=== PATIENT | female | born 1965 | race Caucasian/White ===

== ENCOUNTER 2019-08-01 01:49 | Inpatient (IN) ==
[2019-08-01 04:08] LABS: Bilirubin,Urine Negative (Negative); Blood,Urine Negative (Negative); Clarity,Urine Clear (Clear); Color,Urine Yellow (Yellow); Glucose,Urine (UA) Normal (Normal); Ketones,Urine Negative (Negative); Leukocyte Esterase,Urine Negative (Negative); Nitrite,Urine Negative (Negative); PH,Urine 6.5 pH Units (5.0-8.0); Protein,Urine Negative (Neg-Trace); Specific Gravity,Urine 1.006 (1.010-1.025); Urobilinogen,Urine Normal (Normal)
[2019-08-01 04:18] LABS: Basophils % 0.4 %; Eosinophils # 0.1 K/mcL (0.0-0.6); Eosinophils % 0.5 %; Hematocrit 41.4 % (35.3-44.9); Immature Granulocytes % 0.3 % (0-4); Lymphocytes # 1.9 K/mcL (0.6-4.6); Lymphocytes % 20.4 %; Mean Corpuscular HGB Conc 36.2 g/dL (31.6-35.5); Mean Corpuscular Hemoglobin 33.5 pg (28.0-33.3); Mean Corpuscular Volume 92.4 fL (83.0-100.0); Mean Platelet Volume 10.5 fL (9.4-12.4); Monocytes # 0.4 K/mcL (0.0-1.3); Monocytes % 4.4 %; Platelet Count 191 K/mcL (140-400); Red Blood Count 4.48 M/mcL (3.82-4.97); Red Cell Distribution Width 13.3 % (11.5-14.5); White Blood Count 9.5 K/mcL (4.3-11.1)
[2019-08-01 04:20] LABS: Amphetamine Screen,Urine Negative ng/mL (Cutoff=1000); Barbiturate Screen,Urine Negative ng/mL (Cutoff=200); Benzodiazepines Screen,Urine Negative ng/mL (Cutoff=200); Cannabinoid Screen,Urine Negative ng/mL (Cutoff = 50); Cocaine Screen,Urine Negative ng/mL (Cutoff= 300); Opiate Screen,Urine Negative ng/mL (Cutoff=300); Phencyclidine Screen,Urine Negative ng/mL (Cutoff=25)
[2019-08-01 04:33] LABS: Acetaminophen < 10 mcg/mL (10-20); BUN/Creatinine Ratio 11 (6-26); Blood Urea Nitrogen 5 mg/dL (6-20); Calcium 9.5 mg/dL (8.6-10.3); Carbon Dioxide 20 mEq/L (23-29); Chloride 104 mEq/L (98-107); Ethanol 61 mg/dL (Less than 10); Glucose 233 mg/dL (70-105); Osmolality,Calculated 295 (280-300); Potassium 3.5 mEq/L (3.5-5.1); Salicylate < 2.5 mg/dL (15.0-30.0); Sodium 140 mEq/L (136-145); eGFR For African Americans > 60 (> 60); eGFR For Non-African Americans > 60 (> 60)
[2019-08-01] MEDS ORDERED: traZODone 50 MG TABLET PO PRN (16:57)
[2019-08-01] MEDS ORDERED: Mag Hydrox/Al Hydrox/Simeth 30 ML UDC PO PRN (16:57)
[2019-08-01] MEDS ORDERED: *HR* LORazepam 2 MG/ML VIAL IM PRN (16:57)
[2019-08-01] MEDS ORDERED: *HR* LORazepam 1 MG TABLET PO PRN (16:57)
[2019-08-01] MEDS ORDERED: hydrOXYzine pamoate 25 MG CAPSULE PO PRN (16:57)
[2019-08-01] MEDS ORDERED: MOM Conc 10 ML UD.LIQ PO PRN (16:57)
[2019-08-01] MEDS ORDERED: Haloperidol Lactate 5 MG/ML VIAL IM PRN (16:57)
[2019-08-01] MEDS: Acetaminophen 325 MG TABLET PO PRN (18:45)
[2019-08-01] MEDS: Gabapentin 400 MG CAPSULE PO SCH (20:35)
[2019-08-01] MEDS: Latanoprost 2.5 ML BOTTLE BOTH EYES SCH (21:04)
[2019-08-02] MEDS: Levothyroxine 25 MCG TABLET PO SCH (05:30)
[2019-08-02] MEDS: Gabapentin 400 MG CAPSULE PO SCH ×3 (08:40→20:30)
[2019-08-02] MEDS: *HR* Metformin 500 MG TABLET PO SCH ×2 (08:40→17:13)
[2019-08-02] MEDS: valACYclovir 500 MG TABLET PO SCH (08:41)
[2019-08-02] MEDS: *HR* GlipiZIDE XL (24 HR) 2.5 MG TABLET PO SCH (08:41)
[2019-08-02] MEDS: Acetaminophen 325 MG TABLET PO PRN (10:24)
[2019-08-02] MEDS: clonazePAM 0.5 MG TABLET PO SCH ×2 (15:28→20:30)
[2019-08-02] MEDS: Latanoprost 2.5 ML BOTTLE BOTH EYES SCH (20:51)
[2019-08-03] MEDS: Acetaminophen 325 MG TABLET PO PRN (00:22)
[2019-08-03] MEDS: Levothyroxine 25 MCG TABLET PO SCH (07:16)
[2019-08-03] MEDS: Gabapentin 400 MG CAPSULE PO SCH (08:44)
[2019-08-03] MEDS: *HR* Metformin 500 MG TABLET PO SCH (08:45)
[2019-08-03] MEDS: *HR* GlipiZIDE XL (24 HR) 2.5 MG TABLET PO SCH (08:45)
[2019-08-03] MEDS: valACYclovir 500 MG TABLET PO SCH (08:45)
[2019-08-03] MEDS: clonazePAM 0.5 MG TABLET PO SCH (08:45)
[2019-08-03 08:56] VITALS: BP 134/76
== END 2019-08-03 13:07 | disposition home or self-care (01) | DRG 885 ==
LOC: EMEROOARM 01:49 → 1ANU 16:24
PROVIDERS: ADMIT Psychiatry & Neurology Forensic Psychiatry; ATTEND Psychiatry & Neurology Forensic Psychiatry

== ENCOUNTER 2019-10-03 18:12 | Observation (INO) ==
[2019-10-03 18:53] LABS: Basophils % 0.6 %; Eosinophils # 0.2 K/mcL (0.0-0.6); Eosinophils % 3.5 %; Hemoglobin 13.9 g/dL (11.5-15.4); Immature Granulocytes % 0.2 % (0-4); Immature Platelets 3.3 % (1.1-6.1); Lymphocytes # 2.1 K/mcL (0.6-4.6); Lymphocytes % 40.2 %; Mean Corpuscular HGB Conc 33.9 g/dL (31.6-35.5); Mean Corpuscular Hemoglobin 32.1 pg (28.0-33.3); Mean Corpuscular Volume 94.7 fL (83.0-100.0); Monocytes # 0.4 K/mcL (0.0-1.3); Monocytes % 7.4 %; Neutrophils # 2.5 K/mcL (1.6-8.9); Platelet Count 104 K/mcL (140-400); Red Blood Count 4.33 M/mcL (3.82-4.97); Red Cell Distribution Width 13.1 % (11.5-14.5); Segmented Neutrophils % 48.1 %; White Blood Count 5.2 K/mcL (4.3-11.1)
[2019-10-03] MEDS ORDERED: Metoclopramide 10 MG/2 ML VIAL IVP STA (18:53)
[2019-10-03] MEDS ORDERED: Isovue-370 500 ML BOTTLE IVP ONE (18:53)
[2019-10-03 18:58] LABS: INR 1.4; Prothrombin Time 16.1 Seconds (9.4-12.1)
[2019-10-03 19:07] LABS: BUN/Creatinine Ratio 11 (6-26); Blood Urea Nitrogen 5 mg/dL (6-20); Calcium 9.3 mg/dL (8.6-10.3); Carbon Dioxide 23 mEq/L (23-29); Chloride 108 mEq/L (98-107); Glucose 150 mg/dL (70-105); Osmolality,Calculated 292 (280-300); Potassium 3.7 mEq/L (3.5-5.1); Sodium 141 mEq/L (136-145); eGFR For African Americans > 60 (> 60); eGFR For Non-African Americans > 60 (> 60)
[2019-10-03 19:09] LABS: Troponin I < 0.03 ng/mL (< 0.04)
[2019-10-03 19:19] LABS: Platelet Estimate Normal (Normal)
[2019-10-03] MEDS ORDERED: Aspirin 325 MG TABLET PO ONE (19:54)
[2019-10-03 19:59] LABS: Bilirubin,Urine Negative (Negative); Blood,Urine Negative (Negative); Clarity,Urine Clear (Clear); Color,Urine Yellow (Yellow); Glucose,Urine (UA) Normal (Normal); Ketones,Urine Negative (Negative); Leukocyte Esterase,Urine Negative (Negative); Nitrite,Urine Negative (Negative); Protein,Urine Negative (Neg-Trace); Specific Gravity,Urine 1.026 (1.010-1.025); Urobilinogen,Urine Normal (Normal)
[2019-10-03] MEDS ORDERED: Ondansetron 4 MG/2 ML VIAL IVP PRN (20:09)
[2019-10-03] MEDS ORDERED: Naloxone 0.4 MG/ML INJ IVP PRN (20:09)
[2019-10-03 20:33] LABS: Alanine Aminotransferase 22 Units/L (7-52); Albumin 3.7 g/dL (3.5-5.7); Albumin/Globulin Ratio 1.2 (1.1-2.2); Alkaline Phosphatase 131 Units/L (34-104); Aspartate Amino Transferase 27 Units/L (13-39); Bilirubin,Total 1.4 mg/dL (0.3-1.0); Ethanol < 10 mg/dL (Less than 10); Total Protein 6.7 g/dL (6.4-8.9)
[2019-10-03] MEDS ORDERED: Saline Nasal Spray 44 ML BOTTLE NS PRN (20:33)
[2019-10-03] MEDS ORDERED: Dextrose Gel 15 GM/37.5 ML TUBE PO PRN ×2 (20:39)
[2019-10-03] MEDS ORDERED: *HR* Dextrose 50 % in Water (Syg) 50 ML SYRINGE IVP PRN (20:39)
[2019-10-03] MEDS ORDERED: D5% in Water 1,000 ML IVC PRN (20:39)
[2019-10-03 20:40] LABS: Amphetamine Screen,Urine Negative ng/mL (Cutoff=1000); Barbiturate Screen,Urine Negative ng/mL (Cutoff=200); Benzodiazepines Screen,Urine Negative ng/mL (Cutoff=200); Cannabinoid Screen,Urine Negative ng/mL (Cutoff = 50); Cocaine Screen,Urine Negative ng/mL (Cutoff= 300); Opiate Screen,Urine Negative ng/mL (Cutoff=300); Phencyclidine Screen,Urine Negative ng/mL (Cutoff=25)
[2019-10-03] MEDS ORDERED: *HR* LORazepam 2 MG/ML VIAL IVP PRN ×3 (20:40)
[2019-10-03] MEDS ORDERED: Insulin LISPRO 300 UNITS/3 ML VIAL SQ SCH (21:00)
[2019-10-03] MEDS ORDERED: Latanoprost 2.5 ML BOTTLE BOTH EYES SCH (21:00)
[2019-10-03] MEDS ORDERED: QUEtiapine Fumarate 100 MG TABLET PO SCH (21:00)
[2019-10-03] MEDS: Gabapentin 400 MG CAPSULE PO SCH (23:26)
[2019-10-03] MEDS: clonazePAM 0.5 MG TABLET PO SCH (23:26)
[2019-10-04 01:35] LABS: Adenovirus Not Detected (Not Detect); Coronavirus 229E Not Detected (Not Detect); Coronavirus HKU1 DETECTED (Not Detect); Coronavirus NL63 Not Detected (Not Detect)
[2019-10-04 01:36] LABS: Bordetella Pertussis Not Detected (Not Detect); Chlamydophila pneumoniae Not Detected (Not Detect); Coronavirus OC43 Not Detected (Not Detect); Human Metapneumovirus Not Detected (Not Detect); Human Rhinovirus/Enterovirus Not Detected (Not Detect); Influenza A Subtype 2009 H1 Not Detected (Not Detect); Influenza B Not Detected (Not Detect); Mycoplasma pneumoniae Not Detected (Not Detect); Parainfluenza Virus 1 Not Detected (Not Detect); Parainfluenza Virus 2 Not Detected (Not Detect); Parainfluenza Virus 3 Not Detected (Not Detect); Parainfluenza Virus 4 Not Detected (Not Detect); Respiratory Syncytial Virus Not Detected (Not Detect)
[2019-10-04 02:20] LABS: Estimated Average Glucose 206 mg/dl
[2019-10-04 02:21] LABS: Immature Platelets 3.1 % (1.1-6.1)
[2019-10-04 02:38] LABS: BUN/Creatinine Ratio 11 (6-26); Blood Urea Nitrogen 6 mg/dL (6-20); Calcium 9.1 mg/dL (8.6-10.3); Carbon Dioxide 24 mEq/L (23-29); Chloride 107 mEq/L (98-107); Chol/HDL Ratio 3.5 (0-4.9); Cholesterol 163 mg/dL (< 200); Glucose 224 mg/dL (70-105); HDL Cholesterol 46 mg/dL (40-59); LDL Cholesterol,Calculated 107 mg/dL (0-99); Magnesium 1.6 mg/dL (1.6-2.6); Osmolality,Calculated 293 (280-300); Potassium 3.5 mEq/L (3.5-5.1); Sodium 139 mEq/L (136-145); Triglycerides 51 mg/dL (< 150); eGFR For African Americans > 60 (> 60); eGFR For Non-African Americans > 60 (> 60)
[2019-10-04 02:45] LABS: Basophils % 0.5 %; Eosinophils # 0.1 K/mcL (0.0-0.6); Eosinophils % 3.3 %; Hematocrit 35.4 % (35.3-44.9); Hemoglobin 12.4 g/dL (11.5-15.4); Immature Granulocytes % 0.5 % (0-4); Lymphocytes # 1.7 K/mcL (0.6-4.6); Lymphocytes % 45.6 %; Mean Corpuscular Hemoglobin 33.3 pg (28.0-33.3); Mean Corpuscular Volume 95.2 fL (83.0-100.0); Mean Platelet Volume 10.8 fL (9.4-12.4); Monocytes # 0.3 K/mcL (0.0-1.3); Monocytes % 7.7 %; Neutrophils # 1.6 K/mcL (1.6-8.9); Red Blood Count 3.72 M/mcL (3.82-4.97); Red Cell Distribution Width 13.3 % (11.5-14.5); Segmented Neutrophils % 42.4 %; White Blood Count 3.7 K/mcL (4.3-11.1)
[2019-10-04 02:59] LABS: Platelet Count 86 K/mcL (140-400)
[2019-10-04 03:00] LABS: Platelet Estimate Decreased (Normal)
[2019-10-04] MEDS ORDERED: Levothyroxine 25 MCG TABLET PO SCH (06:30)
[2019-10-04] MEDS ORDERED: Insulin LISPRO 300 UNITS/3 ML VIAL SQ SCH (07:30)
[2019-10-04] MEDS: clonazePAM 0.5 MG TABLET PO SCH (07:50)
[2019-10-04] MEDS: Gabapentin 400 MG CAPSULE PO SCH (07:50)
[2019-10-04] MEDS ORDERED: Vitamin B Complex/Vit C/Vit E 1 EACH TABLET PO SCH (09:00)
[2019-10-04] MEDS ORDERED: Folic Acid 1 MG TABLET PO SCH (09:00)
[2019-10-04] MEDS ORDERED: Fluticasone Propionate Nasal 50 MCG/SPRAY BOTTLE NS SCH (09:00)
[2019-10-04] MEDS ORDERED: Aspirin Enteric Coated 81 MG Tablet PO SCH (09:00)
[2019-10-04 11:04] VITALS: BP 133/69
== END 2019-10-04 13:12 | disposition home or self-care (01) ==
LOC: EMEROOARM 18:12 → 2NENU 18:12 → SUATTDRO 20:20 → 2NENU 20:58
PROVIDERS: ADMIT Internal Medicine; ATTEND Internal Medicine

== ENCOUNTER 2020-02-13 05:23 | Observation (INO) ==
[2020-02-13] MEDS ORDERED: Aspirin 81 MG TAB.CHEW PO ONE (06:02)
[2020-02-13] MEDS ORDERED: 0.9 % Sodium Chloride 500 ML IVC ONE (06:02)
[2020-02-13 07:05] LABS: Basophils % 0.5 %; Eosinophils # 0.1 K/mcL (0.0-0.6); Eosinophils % 0.9 %; Hematocrit 42.3 % (35.3-44.9); Hemoglobin 14.9 g/dL (11.5-15.4); Mean Corpuscular HGB Conc 35.2 g/dL (31.6-35.5); Mean Corpuscular Volume 90.8 fL (83.0-100.0); Mean Platelet Volume 10.7 fL (9.4-12.4); Monocytes # 0.5 K/mcL (0.0-1.3); Monocytes % 7.1 %; Neutrophils # 3.8 K/mcL (1.6-8.9); Platelet Count 141 K/mcL (140-400); Red Blood Count 4.66 M/mcL (3.82-4.97); Segmented Neutrophils % 60.5 %; White Blood Count 6.4 K/mcL (4.3-11.1)
[2020-02-13 07:10] LABS: INR 1.3; Prothrombin Time 14.7 Seconds (9.4-12.1)
[2020-02-13 07:13] LABS: Activated Partial Thrombo Time 33.1 Seconds (26.0-36.0)
[2020-02-13 07:35] LABS: Alanine Aminotransferase 24 Units/L (7-52); Albumin 3.8 g/dL (3.5-5.7); Albumin/Globulin Ratio 1.4 (1.1-2.2); Alkaline Phosphatase 124 Units/L (34-104); Aspartate Amino Transferase 22 Units/L (13-39); BUN/Creatinine Ratio 8 (6-26); Bilirubin,Direct 0.3 mg/dL (0.0-0.2); Bilirubin,Indirect 0.8 mg/dL (0.0-1.0); Bilirubin,Total 1.1 mg/dL (0.3-1.0); Blood Urea Nitrogen 3 mg/dL (6-20); Calcium 9.3 mg/dL (8.6-10.3); Carbon Dioxide 25 mEq/L (23-29); Chloride 104 mEq/L (98-107); Globulin 2.7 g/dL (2.4-3.5); Glucose 292 mg/dL (70-105); Osmolality,Calculated 297 (280-300); Potassium 3.1 mEq/L (3.5-5.1); Sodium 140 mEq/L (136-145); Total Protein 6.5 g/dL (6.4-8.9); Troponin I 0.13 ng/mL (< 0.04); eGFR For African Americans > 60 (> 60); eGFR For Non-African Americans > 60 (> 60)
[2020-02-13] MEDS ORDERED: *HR* Heparin 5,000 UNIT/ML VIAL IVP ONE (07:43)
[2020-02-13] MEDS ORDERED: *HR* Heparin 5,000 UNIT/ML VIAL IVP PRN ×2 (07:43)
[2020-02-13] MEDS ORDERED: Isovue-370 500 ML BOTTLE IVP ONE (07:44)
[2020-02-13] MEDS ORDERED: Heparin 25,000 UNIT/250 ML D5W 25,000 UNIT/250 ML IV.SOLN IVC SCH (07:45)
[2020-02-13 08:20] LABS: Hematocrit 41.9 % (35.3-44.9); Hemoglobin 14.7 g/dL (11.5-15.4); Mean Corpuscular HGB Conc 35.1 g/dL (31.6-35.5); Mean Corpuscular Hemoglobin 32.7 pg (28.0-33.3); Mean Corpuscular Volume 93.3 fL (83.0-100.0); Mean Platelet Volume 10.9 fL (9.4-12.4); Platelet Count 129 K/mcL (140-400); Red Blood Count 4.49 M/mcL (3.82-4.97); White Blood Count 6.7 K/mcL (4.3-11.1)
[2020-02-13 08:30] LABS: Heparin anti-factor XA UFH 0.08 IU/mL (0.30-0.70)
[2020-02-13 08:31] LABS: INR 1.3; Prothrombin Time 14.6 Seconds (9.4-12.1)
[2020-02-13] MEDS ORDERED: *HR* LORazepam 2 MG/ML VIAL IVP ONE ×2 (09:38→12:56)
[2020-02-13] MEDS ORDERED: *HR* Promethazine 25 MG/ML VIAL IVP PRN (09:53)
[2020-02-13 10:54] LABS: Troponin I 0.07 ng/mL (< 0.04)
[2020-02-13] MEDS ORDERED: Ringers Solution, Lactated 1,000 ML IVC ONE (11:10)
[2020-02-13] MEDS ORDERED: *HR* LORazepam 2 MG/ML VIAL IVP PRN ×3 (11:12)
[2020-02-13] MEDS ORDERED: Perflutren Lipid Microsphere 1.3 ML in 0.9 % Sodium Chloride 8.7 ML IVP PRN (11:17)
[2020-02-13] MEDS ORDERED: Dextrose Gel 15 GM/37.5 ML TUBE PO PRN ×2 (11:36)
[2020-02-13] MEDS ORDERED: *HR* Dextrose 50 % in Water (Vial) 50 ML VIAL IVP PRN (11:36)
[2020-02-13 11:59] LABS: Magnesium 1.5 mg/dL (1.6-2.6)
[2020-02-13 13:34] LABS: Adenovirus Not Detected (Not Detect); Bordetella Pertussis Not Detected (Not Detect); Chlamydophila pneumoniae Not Detected (Not Detect); Coronavirus 229E Not Detected (Not Detect); Coronavirus HKU1 Not Detected (Not Detect); Coronavirus NL63 Not Detected (Not Detect); Coronavirus OC43 Not Detected (Not Detect); Human Metapneumovirus Not Detected (Not Detect); Human Rhinovirus/Enterovirus Not Detected (Not Detect); Influenza A Subtype 2009 H1 Not Detected (Not Detect); Influenza B Not Detected (Not Detect); Parainfluenza Virus 1 Not Detected (Not Detect); Parainfluenza Virus 2 Not Detected (Not Detect); Parainfluenza Virus 3 Not Detected (Not Detect); Parainfluenza Virus 4 Not Detected (Not Detect); Respiratory Syncytial Virus Not Detected (Not Detect)
[2020-02-13 13:35] LABS: Mycoplasma pneumoniae Not Detected (Not Detect); SARS-CoV-2 Not Detected (Not Detect)
[2020-02-13] MEDS: Insulin LISPRO 300 UNITS/3 ML VIAL SQ SCH ×2 (15:52→16:32)
[2020-02-13 16:57] VITALS: BP 131/81
[2020-02-13] MEDS ORDERED: Thiamine (B-1) 100 MG, Folic Acid 1 MG, MVI, adult with vitamin K 10 ML in 0.9 % Sodi... IVPB SCH (18:00)
[2020-02-13] MEDS ORDERED: Insulin LISPRO 300 UNITS/3 ML VIAL SQ SCH (21:00)
[2020-02-14] MEDS ORDERED: Aspirin 81 MG TAB.CHEW PO SCH (09:00)
== END 2020-02-13 18:52 | disposition left against medical advice (07) ==
LOC: EMEROOARM 05:23 → 2ANU 05:23
PROVIDERS: ADMIT Internal Medicine; ATTEND Internal Medicine

== ENCOUNTER 2020-04-21 10:51 | Observation (INO) ==
[2020-04-21] MEDS ORDERED: Aspirin 81 MG TAB.CHEW PO ONE (11:03)
[2020-04-21] MEDS: Nitroglycerin 0.4 MG TAB.SUBL SL PRN ×2 (11:11→11:19)
[2020-04-21 11:30] LABS: Basophils # 0.1 K/mcL (0.0-0.2); Basophils % 0.6 %; Eosinophils # 0.1 K/mcL (0.0-0.6); Eosinophils % 1.3 %; Hematocrit 45.4 % (35.3-44.9); Hemoglobin 15.6 g/dL (11.5-15.4); Immature Granulocytes % 0.1 % (0-4); Lymphocytes # 2.3 K/mcL (0.6-4.6); Lymphocytes % 27.4 %; Mean Corpuscular HGB Conc 34.4 g/dL (31.6-35.5); Mean Corpuscular Hemoglobin 31.8 pg (28.0-33.3); Mean Corpuscular Volume 92.5 fL (83.0-100.0); Mean Platelet Volume 11.1 fL (9.4-12.4); Monocytes # 0.5 K/mcL (0.0-1.3); Monocytes % 6.2 %; Neutrophils # 5.3 K/mcL (1.6-8.9); Platelet Count 147 K/mcL (140-400); Red Blood Count 4.91 M/mcL (3.82-4.97); Red Cell Distribution Width 13.1 % (11.5-14.5); Segmented Neutrophils % 64.4 %; White Blood Count 8.2 K/mcL (4.3-11.1)
[2020-04-21 11:40] LABS: INR 1.3; Prothrombin Time 14.8 Seconds (9.4-12.1)
[2020-04-21 11:43] LABS: Activated Partial Thrombo Time 34.5 Seconds (26.0-36.0)
[2020-04-21 11:55] LABS: Troponin I < 0.03 ng/mL (< 0.04)
[2020-04-21 11:57] LABS: BUN/Creatinine Ratio 12 (6-26); Blood Urea Nitrogen 5 mg/dL (6-20); Calcium 9.3 mg/dL (8.6-10.3); Carbon Dioxide 24 mEq/L (23-29); Chloride 101 mEq/L (98-107); Glucose 353 mg/dL (70-105); Osmolality,Calculated 293 (280-300); Potassium 3.5 mEq/L (3.5-5.1); Sodium 136 mEq/L (136-145); eGFR For African Americans > 60 (> 60); eGFR For Non-African Americans > 60 (> 60)
[2020-04-21] MEDS ORDERED: Naloxone 0.4 MG/ML INJ IVP PRN (12:44)
[2020-04-21] MEDS ORDERED: *HR* LORazepam 2 MG/ML VIAL IVP PRN (12:54)
[2020-04-21] MEDS ORDERED: Dextrose Gel 15 GM/37.5 ML TUBE PO PRN ×2 (12:56)
[2020-04-21] MEDS ORDERED: *HR* Dextrose 50 % in Water (Vial) 50 ML VIAL IVP PRN (12:56)
[2020-04-21] MEDS ORDERED: D5% in Water 1,000 ML IVC PRN (12:56)
[2020-04-21 14:19] VITALS: BP 167/84
[2020-04-21] MEDS ORDERED: Pantoprazole 40 MG VIAL IVP SCH (14:54)
[2020-04-21] MEDS ORDERED: Ibuprofen 400 MG TABLET PO ONE (14:56)
[2020-04-21] MEDS ORDERED: Insulin LISPRO 300 UNITS/3 ML VIAL SQ SCH (16:30)
[2020-04-21] MEDS ORDERED: Latanoprost 2.5 ML BOTTLE BOTH EYES SCH (21:00)
[2020-04-21] MEDS ORDERED: Mirtazapine 15 MG TABLET PO SCH (21:00)
[2020-04-21] MEDS ORDERED: QUEtiapine Fumarate 100 MG TABLET PO SCH (21:00)
[2020-04-21] MEDS ORDERED: *HR* Heparin 5,000 UNIT/ML VIAL SQ SCH (22:00)
[2020-04-22] MEDS ORDERED: Levothyroxine 25 MCG TABLET PO SCH (06:30)
[2020-04-22] MEDS ORDERED: valACYclovir 500 MG TABLET PO SCH (09:00)
[2020-04-22] MEDS ORDERED: Aspirin Enteric Coated 81 MG Tablet PO SCH (09:00)
== END 2020-04-21 17:48 | disposition left against medical advice (07) ==
LOC: EMEROOARM 10:51 → 3BNU 10:51
PROVIDERS: ADMIT Internal Medicine; ATTEND Internal Medicine